=== PATIENT | male | born 1975 | race Two or more races ===

== ENCOUNTER 2019-11-28 17:01 | Emergency (ER) | payer OTHER ==
[~2019-11-28] VITALS: Ht 177.8 cm; Wt 93.0 kg
[2019-11-28 20:05] VITALS: BP 160/90
== END 2019-11-28 20:10 | disposition home or self-care (01) ==
LOC: EDBD 17:01 → ER 17:07
DX: M54.2 Cervicalgia (principal); M54.9 Dorsalgia, unspecified; M25.552 Pain in left hip; E11.9 Type 2 diabetes mellitus without complications; V49.49XA Driver injured in collision with other motor vehicles in traffic accident, initial encounter; Y93.89 Activity, other specified; Y99.8 Other external cause status; Y92.410 Unspecified street and highway as the place of occurrence of the external cause
CPT/HCPCS: 72040; 72100